=== PATIENT | female | born 1965 | race African-American/Black ===

== ENCOUNTER 2021-03-07 11:23 | Emergency (ER) | payer OTHER ==
[2021-03-07] MEDS ORDERED: MEDROL 4MG DOSEP4 MG PO (13:08)
== END 2021-03-07 13:35 | disposition home or self-care (01) ==
LOC: FER 11:23
DX: T63.481A Toxic effect of venom of other arthropod, accidental (unintentional), initial encounter (principal)
CPT/HCPCS: J1200; J2930